=== PATIENT | female | born 1985 ===

== ENCOUNTER 2017-04-23 13:34 | Emergency (ER) | payer MEDICAID, OTHER ==
[2017-04-23 13:39] VITALS: BMI 22.8
[2017-04-23 13:40] VITALS: BP 132/74; PULSE 80; RESP 16; TEMP 97.8; O2SAT 98
--- NOTE | 2017-04-23 13:50 | C.PDOC ---
History Of Present Illness 31 year old female presents to the ED requesting pain medication refill. Pt state she had recent ( month ago) facial reconstructive surgery done by a plastic surgeon and she was advised to massage her face 3 time a day. Pt states that massaging her face is "painful and I need pain medication before doing it" . Pt admits, was prescribed percocet for pain. Otherwise, Patient denies fever, chills, skin changes, redness or discharges, denies nay other active physical complaints. Pt sts, " my doctor is on vacation and I need pain medication until then". Ambulate to Ed for evaluation, not in any apparent distress. Time Seen by Provider: 04/23/17 13:40 Chief Complaint (Nursing): Medical Clearance History Per: Patient History/Exam Limitations: no limitations Onset/Duration Of Symptoms: Days Current Symptoms Are (Timing): Still Present Reports Recently: Treated By A Physician (Plastic surgeon) Recent travel outside of the [place]: No Additional History Per: Patient Past Medical History Reviewed: Historical Data, Nursing Documentation, Vital Signs Vital Signs: Last Vital Signs Temp 97.8 F 04/23/17 13:39 Pulse 80 04/23/17 13:39 Resp 16 04/23/17 13:39 BP 132/74 04/23/17 13:39 Pulse Ox 98 04/23/17 14:03 - Medical History PMH: Anxiety, Depression Denies: Diabetes, Hepatitis, HIV, HTN, Seizures, Sexually Transmitted Disease Other Surgeries: Plastic surgery Family History: States: Unknown Family Hx - Social History Hx Tobacco Use: No Hx Alcohol Use: No Hx Substance Use: No - Immunization History Hx Tetanus Toxoid Vaccination: No Hx Influenza Vaccination: No Hx Pneumococcal Vaccination: No Review Of Systems Constitutional: Negative for: Fever, Chills Eyes: Negative for: Vision Change Cardiovascular: Negative for: Chest Pain Gastrointestinal: Negative for: Nausea, Vomiting Musculoskeletal: Negative for: Neck Pain Skin: Negative for: Rash Neurological: Negative for: Weakness, Numbness, Headache, Dizziness Physical Exam - Physical Exam Appears: Non-toxic, No Acute Distress Skin: Normal Color, Warm, Dry, No Rash, Other (well healing incion line noted along hail line, clear, dry, intact. No celluliis.) Head: Normacephalic Eye(s): bilateral: PERRL Ear(s): Bilateral: Normal Nose: No Discharge, No Epistaxis Oral Mucosa: Moist, No Drooling, No Trismus Tongue: Normal Appearing Lips: Normal Appearing Throat: No Erythema, No Exudate Neck: Trachea Midline, Supple Lymphatic: No Adenopathy (cervical) Cardiovascular: No Murmur Extremity: Normal ROM, No Deformity Neurological/Psych: Oriented x3, Normal Speech, Normal Cognition ED Course And Treatment O2 Sat by Pulse Oximetry: 98 (On RA) Pulse Ox Interpretation: Normal Progress Note: Pt appears afebrile, hemodynamicaly stable. Non-toxic. Tolerate Po well in ED. Skin: no evidence of cellultis. neurologicaly intact. Pt was advised on pain medication policy. [facility] checked, no records noted. Tramadol given. Pt advised to FU with PMD, SUrgery as need for further evaluation and pain control. return if any new changes. Disposition Counseled Patient/Family Regarding: Diagnosis, Need For Followup, Rx Given - Disposition Referrals: [facility] at [facility] [Outside] Disposition: HOME/ ROUTINE Disposition Time: 13:50 Condition: STABLE Additional Instructions: Follow up with PMD, Pain Management in 2-3 days for re-evaluation. return to Ed if any new changes. Prescriptions: traMADol [Ultram] 50 mg PO TID #7 tab Instructions: Medicine Refill (ED) Forms: [employer] (Maori) - Clinical Impression Clinical Impression: Medication refill - PA / INTERVENTION MANAGER / Resident Statement MD/DO has reviewed & agrees with the documentation as recorded. - Scribe Statement The provider has reviewed the documentation as recorded by the Scribe Ho Barney All medical record entries made by the Scribe were at my direction and personally dictated by me. I have reviewed the chart and agree that the record accurately reflects my personal performance of the history, physical exam, medical decision making, and the department course for this patient. I have also personally directed, reviewed, and agree with the discharge instructions and disposition.
== END 2017-04-23 13:59 | disposition home or self-care (01) ==
LOC: C.ER 13:34
DX: Z76.0 Encounter for issue of repeat prescription (principal)

== ENCOUNTER 2018-10-08 17:22 | Emergency (ER) | payer OTHER ==
[2018-10-08 17:23] VITALS: BMI 22.8
[2018-10-08 17:31] VITALS: BP 128/77; PULSE 77; RESP 20; TEMP 98.6; O2SAT 97
--- NOTE | 2018-10-08 17:48 | C.PDOC ---
History Of Present Illness 32 y/o female presents to ED complaining of hives that started today. Patient states the only difference she did was eat rare meat last night. She denies any changes in perfumes or soaps. Reports she first developed hives on the face and then later to torso and arms. She denies headache, difficulty swallowing, tongue swelling, lip swelling, neck pain, SOB, chest pain, fever, chills, nausea, or vomiting. Time Seen by Provider: 10/08/18 17:39 Chief Complaint (Nursing): Allergic Reaction History Per: Patient History/Exam Limitations: no limitations Onset/Duration Of Symptoms: Hrs Current Symptoms Are (Timing): Still Present Past Medical History Reviewed: Historical Data, Nursing Documentation, Vital Signs Vital Signs: Last Vital Signs Temp 98.6 F 10/08/18 17:28 Pulse 77 10/08/18 17:28 Resp 20 10/08/18 17:28 BP 128/77 10/08/18 17:28 Pulse Ox 97 10/08/18 17:28 Primary Care Provider: Clinic,Med Surg - Medical History PMH: Anxiety, Depression Denies: Diabetes, Hepatitis, HIV, HTN, Seizures, Sexually Transmitted Disease Family History: States: No Known Family Hx - Social History Hx Tobacco Use: No Hx Alcohol Use: Yes Hx Substance Use: No - Immunization History Hx Tetanus Toxoid Vaccination: No Hx Influenza Vaccination: No Hx Pneumococcal Vaccination: No Review Of Systems Except As Marked, All Systems Reviewed And Found Negative. Constitutional: Negative for: Fever, Chills ENT: Negative for: Mouth Swelling Cardiovascular: Negative for: Chest Pain Respiratory: Negative for: Shortness of Breath Gastrointestinal: Negative for: Nausea, Vomiting Musculoskeletal: Negative for: Neck Pain Skin: Positive for: Other (hives on face, torso, and arms) Neurological: Negative for: Headache Physical Exam - Physical Exam Appears: Non-toxic, No Acute Distress Skin: Warm, Dry Head: Normacephalic Eye(s): bilateral: Normal Inspection Oral Mucosa: Moist Tongue: Normal Appearing, No Swelling Lips: Normal Appearing, No Swelling Throat: Normal Neck: Supple Cardiovascular: Rhythm Regular, No Murmur Respiratory: Normal Breath Sounds, No Rales, No Rhonchi, No Wheezing Gastrointestinal/Abdominal: Soft, No Tenderness Extremity: Bilateral: Atraumatic, Normal ROM Neurological/Psych: Oriented x3, Normal Speech (speaking clearly) ED Course And Treatment O2 Sat by Pulse Oximetry: 97 (RA) Pulse Ox Interpretation: Normal Medical Decision Making Medical Decision Making: Plan: --Prednisone 60 mg PO --Benadryl 25 mg PO Disposition Counseled Patient/Family Regarding: Diagnosis, Rx Given - Disposition Referrals: [facility] at [facility] [Outside] Disposition: HOME/ ROUTINE Disposition Time: 18:15 Condition: IMPROVED Prescriptions: DiphenhydrAMINE [Benadryl] 25 mg PO TID #10 cap Prednisone [Deltasone] 40 mg PO DAILY #6 tablet Instructions: Hives (DC) Forms: [employer] (Welsh), General Discharge Instructions - POA Present On Arrival: None - Clinical Impression Clinical Impression: Allergic urticaria - Scribe Statement The provider has reviewed the documentation as recorded by the Laure Shields Provider Attestation: All medical record entries made by the Laure were at my direction and personally dictated by me. I have reviewed the chart and agree that the record accurately reflects my personal performance of the history, physical exam, medic al decision making, and the department course for this patient. I have also personally directed, reviewed, and agree with the discharge instructions and disposition.
== END 2018-10-08 18:27 | disposition home or self-care (01) ==
LOC: C.ER 17:22
DX: L50.0 Allergic urticaria (principal)